=== PATIENT | male | born 1980 | race Caucasian/White ===

== ENCOUNTER 2022-02-18 10:00 | Day surgery (SDC) | payer BC ==
[~2022-02-18] VITALS: Ht 188 cm; Wt 88.6 kg
--- NOTE | ~2022-02-18 | OR ---
[facility] [address], [place] [address] Draft DATE OF OPERATION: 02/18/2022 SURGEON: Mesfin Briones MD PREOPERATIVE DIAGNOSES: Deviated nasal septum, turbinate hypertrophy, nasal obstruction. POSTOPERATIVE DIAGNOSES: Deviated nasal septum, turbinate hypertrophy, nasal obstruction. PROCEDURES: 1. Nasal septoplasty, 40680. 2. Right submucous resection inferior turbinate, 82417. INDICATIONS: This 42-year-old gentleman suffered a fractured nose, maybe more than one when he was just a teenager and he lived with nasal obstruction, but it seems to be worse now, especially when he is asleep. The patient came to the office for evaluation to see if we can get it fixed. The patient's septum had caudal dislocation into the left nostril with a high deviation onto that left side and spurs sticking in the airway on the right side. The patient has tried decongestants, antihistamines, usual medical means to try and make him breathe better, was really is a structural problem. Because of medical failure, the above procedures were indicated. DESCRIPTION OF PROCEDURE: The patient was placed in the supine position, had an orotracheal intubation, was placed under general anesthesia. A 5 mL of 1% lidocaine with 1:200,000 epinephrine were injected into the septum utilizing hydrodissection to the fullest. Incision was made in the left nostril right on the caudal aspect of the septum and the elevation of the mucoperichondrium was done on the right side. The bone was from cartilage and then bilateral elevation of the mucoperiosteum of the deviated septum was achieved. The spur was removed with a mallet and osteotome. The cartilage was from the maxillary crest, which also was holding it on to the left side. After removing most of that crest to allow the cartilage to move somewhat to the right, just the tiniest piece of an inferior strip of cartilage was removed. Then, 5-0 PDS suture was placed through the cartilage itself without incorporating any mucosa and then a pocket created between the medial crura of the lower lateral cartilages and then the septum inserted into this pocket with the suture that had been attached and drawn through the columella. That was stationed so that the septum could then be based into the midline with 4-0 gut with the incision on the left side closed. About 2 or 3 mL of 0.5% Marcaine 1 to 200,000 PATIENT NAME: MARCELO WEST OPERATIVE REPORT DATE OF : 84 REPORT #: [id number] PHYSICIAN: MESFIN BRIONES MD PCP: MAKAYLA BENTON MD REPORT IS CONFIDENTIAL AND NOT TO BE RELEASED WITHOUT AUTHORIZATION [facility] [address], [place] [address] Draft epinephrine were put into that pocket, re-aspirating and then doing another mL or so to give the patient some longer lasting anesthesia after surgery. Basting stitch of 4-0 chromic closed of all flaps nicely. After re-examining the airway, the left inferior turbinate was naturally smaller because the deviation of the septum pressed into it. Now, the right airway was impinged upon, so a submucous resection was done, injecting a half mL of Marcaine, making a stab incision anteriorly exposing the stalk of the inferior turbinates and this was fractured with Racheal forceps and the larger bulbous part of the cartilage fractured many pieces and removed from the airway. ESTIMATED BLOOD LOSS: About 20 or 25 mL. COMPLICATIONS: There were no complications. No packing required. The patient went to recovery room in good condition. Mesfin Briones MD [facility] /[id number] Copies: ~ PATIENT NAME: MARCELO WEST SYMONERONEL OPERATIVE REPORT DATE OF : 84 REPORT #: [id number] PHYSICIAN: MESFIN BRIONES MD PCP: MAKAYLA BENTON MD REPORT IS CONFIDENTIAL AND NOT TO BE RELEASED WITHOUT AUTHORIZATION
[~2022-02-18 10:00] MED LIST: ZOLOFT50 MG PO
--- NOTE | 2022-02-18 14:41 | NUR ---
02/18/22 1441 Mary Sanchez 1431 PATIENT ARRIVES TO PACU UNRESPONSIVE TO PAIN. ORAL AIRWAY IN PLACE. RESP EVEN AND UNLABORED, MASK AT 10 LITERS. 1435 PATIENT AWAKE OFF/ON, BUT VERY DROWSY. ORAL AIRWAY REMOVED. RESP EVEN AND UNLABORED, MASK OFF. ROOM AIR SATS >93%. PATIENT DENIES PAIN OR NAUSEA. 1440 PATIENT HOB ELEVATED PER REQUEST. AWAKE OFF/ON, DROWSINESS IMPROVING. RESP EVEN AND UNLABORED, ROOM AIR SATS >94%. CONTINUES TO DENY PAIN OR NAUSEA.
--- NOTE | 2022-02-18 15:38 | NUR ---
1510: PATIENT IS ALERT AND ORIENTED. DENIES PAIN OR NAUSEA. BREATHING EQUAL AND UNLABORED. OXYGEN SATURATION ABOVE 95%. PATIENT HAS DRIP PAD WITH MODERATE AMOUNT OF RED DRAINAGE. DRIP PAD CHANGED. IVF INFUSING. PATIENT GIVEN PUDDING AND WATER. CALL LIGHT WITHIN REACH NO FUTHER NEEDS. NO QUESTIONS AT THIS TIME. 1530 [facility] CALLED VERBAL ORDER GIVEN.
--- NOTE | 2022-02-18 16:26 | NUR ---
1615 PATIENT HAS MET DISCHARGE CRITERIA. PATIENT WAS ABLE TO DRESS SELF AND TOLERATED IT WELL. IV D/C'D WNL. PATIENT WAS WHEELED OUT OF FACILTY TO PRIVATE AUTO. NO QUESTIONS AT THIS TIME NO FUTHER NEEDS. PRESENT WITH HIM
== END 2022-02-18 16:15 | disposition home or self-care (01) ==
LOC: DS 10:00
PROVIDERS: ATTEND Otolaryngology
PROC: 09SM0ZZ Reposition Nasal Septum, Open Approach (ICD-10-PCS; 2022-02-18)
PROC: 09BL0ZZ Excision of Nasal Turbinate, Open Approach (ICD-10-PCS; principal; 2022-02-18 13:30)
DX: J34.2 Deviated nasal septum (principal); J34.3 Hypertrophy of nasal turbinates
CPT/HCPCS: J0131; J1100; J1885; J2001; J2250; J2405; J2704; J3010; J7121